=== PATIENT | male | born 1980 | race American Indian/Alaskan Native ===

== ENCOUNTER 2020-11-18 12:19 | Emergency (ER) | payer SELFPAY ==
[2020-11-18 14:06] VITALS: BP 139/89
--- NOTE | 2020-11-18 15:50 | Emergency Department Report ---
Abscess Boil HPI - HPI Chief Complaint: Extremity Injury, Upper Stated Complaint: POSSIBLE FINGER INFECTION Time Seen by Provider: 11/18/20 14:07 Duration: 1 Week Location: Upper Extremity Severity: Mild History: Yes Pain, No Fever, No Purulent Drainage, No Numbness, No Foreign Body, No Previous History, No Insect Bite HPI: This is a 40-year-old female nontoxic, well nourished in appearance, no acute signs of distress presents to the ED with c/o of right index finger paronychia x1 week. Patient denies any pus or drainage. Patient denies any fever, chills, nausea, vomiting, chest pain, shortness of breath, headache or stiff neck. Patient denies any allergies or significant past medical history. Home Medications: Previous Rx's Medication Instructions Recorded Last Taken Type Acetaminophen/Codeine [Tylenol #3] 1 tab PO Q6H PRN #15 tab 06/25/15 Unknown Rx Amoxicillin [Trimox CAP] 500 mg PO Q8H #30 capsule 06/25/15 Unknown Rx Sulfamethoxazole/Trimethoprim 1 each PO BID #14 tablet 11/18/20 Unknown Rx [Bactrim DS TAB] Allergies/Adverse Reactions: Allergies Allergy/AdvReac Type Severity Reaction Status Date / Time No Known Allergies Allergy Verified 11/18/20 14:04 ED Review of Systems ROS: Stated complaint: POSSIBLE FINGER INFECTION Other details as noted in HPI Constitutional: denies: chills, fever Eyes: denies: eye pain, eye discharge, vision change ENT: denies: ear pain, throat pain Respiratory: denies: cough, shortness of breath, wheezing Cardiovascular: denies: chest pain, palpitations Endocrine: no symptoms reported Gastrointestinal: denies: abdominal pain, nausea, diarrhea Genitourinary: denies: urgency, dysuria Musculoskeletal: denies: back pain, joint swelling, arthralgia Skin: denies: rash, lesions Neurological: denies: headache, weakness, paresthesias Psychiatric: denies: anxiety, depression Hematological/Lymphatic: denies: easy bleeding, easy bruising ED Past Medical Hx - Past Medical History Previous Medical History?: No - Surgical History Additional Surgical History: afsaneh in R thigh. screws in R ankle - Social History Smoking Status: Current Every Day Smoker Substance Use Type: None - Medications Home Medications: Home Medications Medication Instructions Recorded Confirmed Last Taken Type Acetaminophen/Codeine [Tylenol #3] 1 tab PO Q6H PRN #15 tab 06/25/15 Unknown Rx Amoxicillin [Trimox CAP] 500 mg PO Q8H #30 capsule 06/25/15 Unknown Rx Sulfamethoxazole/Trimethoprim 1 each PO BID #14 tablet 11/18/20 Unknown Rx [Bactrim DS TAB] ED Abscess Boil Physical Exam - Exam General: Vital signs noted. No distress. Alert and acting appropriately. Size: 1 cm Exam: Yes Tenderness, Yes Fluctuance, Yes Normal Neurologic Exam, Yes Normal Circulation, No Surrounding Cellulites/Erythema, No Lymphangitis, No Crepitation, No Heart Murmur I & D Note - I & D Note I & D Note: Patient first soaked Betadine with warm water for 30 minutes. Under sterile field, I used Betadine to cleanse the area. I then used an 10 blade and inserted between the cuticle and nail bed to separate. About 0.5 cc of purulent drainage noted. Swelling has significantly decreased. A sterile 4 x 4 with tape has been applied as dressing. Bleeding is under control. Patient tolerated the procedure well with no signs of distress noted. ED Course Vital Signs 11/18/20 14:02 Temperature 98.9 F Pulse Rate 64 Respiratory 20 Rate Blood Pressure 139/89 O2 Sat by Pulse 100 Oximetry - Reevaluation(s) Reevaluation #1: 11/18/20 15:49 Patient is speaking in full sentences with no signs of distress noted. Critical care attestation.: If time is entered above; I have spent that time in minutes in the direct care of this critically ill patient, excluding procedure time. ED Medical Decision Making - Medical Decision Making This is a 40-year-old male that presents with right index paronychia. Patient is stable and was examined by me. This is incision and drainage and has been performed and patient tolerated well. A sterile dressing has been applied. Patient was educated on proper wound care. Patient is discharged with Bactrim. Patient was instructed to refer to Follow-up with a primary care doctor in 3-5 days or if symptoms worsen and continue return to emergency room as soon as possible. At time of discharge, the patient does not seem toxic or ill in appearance. No acute signs of distress noted. Patient agrees to discharge treatment plan of care. No further questions noted by the patient. ED Disposition Clinical Impression: Paronychia of right index finger, Encounter for incision and drainage procedure Disposition: DC-01 TO HOME OR SELFCARE Is pt being admited?: No Does the pt Need Aspirin: No Condition: Stable Instructions: Paronychia, [id number] Additional Instructions: Follow-up with a primary care doctor in 3-5 days or if symptoms worsen and continue return to emergency room as soon as possible. Prescriptions: Sulfamethoxazole/Trimethoprim [Bactrim DS TAB] 1 each PO BID #14 tablet Referrals: PRIMARY MD DANIELA [Primary Care Provider] - 3-5 Days BIANCA ARREGUIN MD [Staff Physician] - 3-5 Days Time of Disposition: 15:50
== END 2020-11-18 16:12 | disposition home or self-care (01) ==
LOC: ED 12:19
DX: L03.011 Cellulitis of right finger (principal); F17.200 Nicotine dependence, unspecified, uncomplicated; Z76.89 Persons encountering health services in other specified circumstances; Z79.899 Other long term (current) drug therapy; Z98.890 Other specified postprocedural states

== ENCOUNTER 2021-01-03 11:22 | Emergency (ER) | payer SELFPAY ==
[2021-01-03 11:29] VITALS: BP 123/75
--- NOTE | 2021-01-03 12:32 | Emergency Department Report ---
Chief Complaint: Extremity Injury, Upper Stated Complaint: RT INDEX FINGER INFECTION Time Seen by Provider: 01/03/21 12:22 - HPI History of Present Illness: Patient is a 40-year-old male presents emergency room with complaints of a recheck of his right index finger. Patient was evaluated in the emergency department approximately a month ago and was diagnosed with a paronychia at that time and reports that he completed antibiotics. He states that he never followed up with a primary care doctor. He states that he no longer has any swelling. He states that his fingernail looks abnormal. He denies any fever, drainage, any other symptoms. No past medical history. No allergies medications. Vitals are normal On exam: Patient's right index finger nail appears very thick and has yellowing/darkening of the nail, there is no erythema, no increased warmth, no edema, no fluctuance, no induration, no tenderness palpation, full range of motion of all digits, neurovascularly intact Examination appears most consistent with onychomycosis Patient has no signs of cellulitis, abscess, paronychia, infection at this time Advised patient to follow-up with primary care doctor for further evaluation and treatment as necessary Discussed return precautions Patient given the appropriate resources Medical screen examination performed and there is no threat to life or limb at this time - Exam Vital Signs: Vital Signs 01/03/21 11:27 Temperature 98.2 F Pulse Rate 98 H Respiratory 18 Rate Blood Pressure 123/75 O2 Sat by Pulse 98 Oximetry MSE screening note: Focused history and physical exam performed. ED Disposition for MSE Clinical Impression: Onychomycosis Disposition: - TO HOME OR SELFCARE Is pt being admited?: No Does the pt Need Aspirin: No Condition: Stable Instructions: Fungal Nail Infection Additional Instructions: Follow-up with your primary care doctor. Return to emergency room for any new or worsening symptoms. Referrals: [facility] [Provider Group] - 3-5 Days [facility], [LAB[facility]CONTRACT] - 3-5 Days [facility] [Outside] - 3-5 Days [facility] [Outside] - 3-5 Days Time of Disposition: 12:31 Print Language: MEXICAN
== END 2021-01-03 12:39 | disposition home or self-care (01) ==
LOC: ED 11:22
DX: B35.1 Tinea unguium (principal); Z98.890 Other specified postprocedural states
CPT/HCPCS: 99282